=== PATIENT | female | born 1960 | race Two or more races ===

== ENCOUNTER 2023-06-13 10:28 | Inpatient (IN) | payer MEDICARE, MEDICAID ==
[~2023-06-13] VITALS: Ht 160 cm; Wt 89.7 kg
[2023-06-13] MEDS ORDERED: CLINDAMYCIN 600MG IV 50 ML IV ONE (11:30)
[2023-06-13 11:45] LABS: Basophils # (auto) 0.1 10 ^3/uL (0-0.2); Basophils % (auto) 0.7 % (0.0-2.0); Eosinophils # (auto) 0.3 10 ^3/uL (0-0.8); Eosinophils % (auto) 2.5 % (0.0-7.0); Hematocrit 33.7 % (36.0-46.0); Hemoglobin 10.8 g/dL (12.2-16.2); Lymphocytes % (auto) 17.3 % (10.0-50.0); Mean Corpuscular Volume 84.4 fL (80.0-100.0); Monocytes # (auto) 0.7 10 ^3/uL (0-1.3); Monocytes % (auto) 6.3 % (0.0-12.0); Neutrophils # (auto) 8.3 10 ^3/uL (1.6-8.6); Neutrophils % (auto) 73.2 % (37.0-80.0); Red Cell Distribution Width 16.9 % (11.8-14.3); White Blood Cell 11.4 10^3/uL (4.4-10.8)
[2023-06-13 12:35] LABS: Lactic Acid w/Reflex 2.4 mmol/L (0.4-2.0)
[2023-06-13 12:41] LABS: Potassium 4.6 mmol/L (3.5-5.1)
[2023-06-13 12:53] LABS: Albumin 3.2 g/dL (3.4-5.0); BUN/Creatinine Ratio 16.8 (10.0-20.0); Total Protein 8.2 g/dL (6.4-8.2)
[2023-06-13 13:00] LABS: Bilirubin, Total 0.4 mg/dL (0.2-1.0)
[2023-06-13 13:19] LABS: Erythrocyte Sedimentation Rate 85 mm/hr (0-20)
[2023-06-13] MEDS ORDERED: VANCOMYCIN 1GM/250ML 250 ML IV ONE ×2 (13:30→19:00)
[2023-06-13] MEDS ORDERED: MORPHINE SULFATE INJ 2 MG/ml SYRG IV PRN (13:45)
[2023-06-13] MEDS ORDERED: NITROGLYCERIN 0.4 MG SL TAB SL PRN (13:45)
[2023-06-13 14:55] LABS: Eosinophils # (auto) 0.3 10 ^3/uL (0-0.8); Hemoglobin 10.6 g/dL (12.2-16.2); Lymphocytes # (auto) 1.9 10 ^3/uL (0.4-5.4); Monocytes # (auto) 0.6 10 ^3/uL (0-1.3); Neutrophils # (auto) 8.7 10 ^3/uL (1.6-8.6)
[2023-06-13 14:57] LABS: Basophils # (auto) 0.1 10 ^3/uL (0-0.2); Basophils % (auto) 0.7 % (0.0-2.0); Eosinophils % (auto) 2.8 % (0.0-7.0); Hematocrit 32.8 % (36.0-46.0); Lymphocytes % (auto) 16.2 % (10.0-50.0); Mean Corpuscular Hemoglobin 26.9 pg (28.0-32.0); Mean Corpuscular Hgb Conc. 32.3 g/dL (32.0-36.0); Mean Corpuscular Volume 83.2 fL (80.0-100.0); Monocytes % (auto) 5.4 % (0.0-12.0); Neutrophils % (auto) 74.9 % (37.0-80.0); Red Blood Cells 3.94 10^6/uL (4.0-5.20); Red Cell Distribution Width 16.5 % (11.8-14.3); White Blood Cell 11.6 10^3/uL (4.4-10.8)
[2023-06-13 15:48] LABS: Urine Bacteria NONE SEEN /hpf (None Seen); Urine Blood Negative /uL (Negative); Urine Clarity Clear (Clear); Urine Color Yellow (Yellow); Urine Hyaline Cast MANY /lpf (0 - 2); Urine Mucus FEW (None Seen); Urine Protein, UAD 2+ (Negative); Urine Specific Gravity 1.032 (1.001-1.035); Urine WBC 2 /hpf (0 - 5); Urine pH 5.5 (5.0-8.0)
[2023-06-13] MEDS ORDERED: VANCOMYCIN PER PHARMACY 0 MG IV SCH (16:45)
[2023-06-13 16:56] LABS: Alcohol, Urine < 3.0 mg/dL (0-10); Amphetamine Screen, Urine NEGATIVE (NEGATIVE); Barbiturate Scree,Urine NEGATIVE (NEGATIVE); Benzodiazephine Screen, Urine NEGATIVE (NEGATIVE); Cannabinoid Screen, Urine NEGATIVE (NEGATIVE); Cocaine Screen, Urine NEGATIVE (NEGATIVE); Opiate Scree,Urine POSITIVE (NEGATIVE); Phencyclidine Screen, Urine NEGATIVE (NEGATIVE)
[2023-06-13] MEDS ORDERED: ONDANSETRON HCL 4 MG/2 ML VIAL IV ONE (20:15)
[2023-06-13] MEDS ORDERED: MORPHINE SULFATE INJ 2 MG/ml SYRG IV ONE (20:15)
[2023-06-13 20:46] VITALS: PULSE 92
[2023-06-13 22:00] VITALS: BP 121/66; PULSE 95; RESP 16; TEMP 98.3; O2SAT 96
[2023-06-13] MEDS: HYDROcodone-ACET 5/325MG TAB PO PRN (22:05)
[2023-06-13] MEDS ORDERED: CHOL20007 PO (22:32)
[2023-06-13] MEDS ORDERED: SITA50TA PO (22:32)
[2023-06-13] MEDS ORDERED: LEVEMIR SC (22:32)
[2023-06-13] MEDS ORDERED: GABA-339 PO (22:32)
[2023-06-13] MEDS ORDERED: METF-372 PO (22:32)
[2023-06-13] MEDS ORDERED: ASPI-123 PO (22:32)
[2023-06-13] MEDS ORDERED: CARV3.1240 PO (22:32)
[2023-06-13] MEDS ORDERED: LISI-275 PO (22:32)
[2023-06-14] MEDS: CEFEPIME 1GM/ 50ML 50 ML IV SCH ×4 (00:44→22:12)
[2023-06-14 05:00] VITALS: BP 169/80; PULSE 77; RESP 20; TEMP 98; O2SAT 96
[2023-06-14 06:48] LABS: INR 1.01 (0.9-1.15); Partial Thromboplastin Time 35.1 SEC (24.5-34.5); Prothrombin Time 10.6 sec (9.3-11.8)
[2023-06-14 06:55] LABS: Basophils # (auto) 0.1 10 ^3/uL (0-0.2); Basophils % (auto) 0.6 % (0.0-2.0); Eosinophils # (auto) 0.4 10 ^3/uL (0-0.8); Eosinophils % (auto) 4.5 % (0.0-7.0); Hematocrit 31.4 % (36.0-46.0); Hemoglobin 10.3 g/dL (12.2-16.2); Lymphocytes # (auto) 1.8 10 ^3/uL (0.4-5.4); Lymphocytes % (auto) 18.4 % (10.0-50.0); Mean Corpuscular Hemoglobin 27.3 pg (28.0-32.0); Mean Corpuscular Hgb Conc. 32.8 g/dL (32.0-36.0); Mean Corpuscular Volume 83.2 fL (80.0-100.0); Monocytes # (auto) 0.7 10 ^3/uL (0-1.3); Monocytes % (auto) 7.5 % (0.0-12.0); Neutrophils # (auto) 6.6 10 ^3/uL (1.6-8.6); Nucleated Red Blood Cells % 0.1 %; Red Blood Cells 3.78 10^6/uL (4.0-5.20); Red Cell Distribution Width 16.5 % (11.8-14.3); White Blood Cell 9.5 10^3/uL (4.4-10.8)
[2023-06-14 07:06] LABS: Potassium 4.6 mmol/L (3.5-5.1)
[2023-06-14 07:22] LABS: BUN/Creatinine Ratio 18.1 (10.0-20.0); Calcium 8.6 mg/dL (8.5-10.1)
[2023-06-14] MEDS ORDERED: SODIUM CHLORIDE 0.9% 1,000 ML IV SCH (08:15)
[2023-06-14 09:00] VITALS: BP 124/53; PULSE 85; RESP 20; TEMP 98.4; O2SAT 97
[2023-06-14] MEDS ORDERED: PATIENTS OWN MEDICATION (Cholecalciferol (Vitamin D3) 1 TAB) PO SCH (10:00)
[2023-06-14] MEDS ORDERED: ASPirin-EC 325mg tab PO SCH (10:00)
[2023-06-14] MEDS ORDERED: DEXTROSE (50%) 50ML SYRG IV PRN (12:15)
[2023-06-14] MEDS ORDERED: ATORVASTATIN 20 MG TAB PO ONE (13:00)
[2023-06-14 13:02] VITALS: BP 143/54; PULSE 81; RESP 20; TEMP 97.7; O2SAT 97
[2023-06-14] MEDS ORDERED: GABAPENTIN 500 MG PO SCH (14:00)
[2023-06-14] MEDS: CARVEDILOL 3.125 MG TAB PO SCH ×2 (14:29→22:12)
[2023-06-14] MEDS: GABAPENTIN 300 MG CAP PO SCH ×2 (14:30→22:12)
[2023-06-14] MEDS: LISINOPRIL 5 MG TAB PO SCH (14:30)
[2023-06-14] MEDS: CHOLECALCIFEROL (VITD3) 2,000 UNIT CAP/TAB PO SCH (14:30)
[2023-06-14 17:00] VITALS: BP 154/74; PULSE 86; RESP 20; TEMP 98.6; O2SAT 97
[2023-06-14] MEDS: ACCU-CHEK COMFORT CURVE STRIP VI SCH ×2 (17:00→22:13)
[2023-06-14] MEDS: SODIUM CHLORIDE 0.9% 1,000 ML IV SCH ×2 (18:00→19:00)
[2023-06-14] MEDS ORDERED: VANCOMYCIN 1GM/250ML 250 ML IV SCH (18:00)
[2023-06-14] MEDS: InsuLIN REG 1unit/0.01ml Soln (100units/ml) SC SCH ×2 (19:09→22:00)
[2023-06-14] MEDS: HYDROcodone-ACET 5/325MG TAB PO PRN (20:11)
[2023-06-14] MEDS: VANCOMYCIN 1GM/250ML 250 ML IV SCH (20:11)
[2023-06-14 22:00] VITALS: BP 150/71; PULSE 77; RESP 18; TEMP 98.5; O2SAT 96
[2023-06-15 05:18] VITALS: BP 148/65; PULSE 75; RESP 16; TEMP 98.1; O2SAT 95
[2023-06-15] MEDS: CEFEPIME 1GM/ 50ML 50 ML IV SCH (06:09)
[2023-06-15] MEDS: GABAPENTIN 300 MG CAP PO SCH ×3 (06:09→22:27)
[2023-06-15] MEDS: ACCU-CHEK COMFORT CURVE STRIP VI SCH ×4 (06:10→22:28)
[2023-06-15] MEDS: InsuLIN REG 1unit/0.01ml Soln (100units/ml) SC SCH ×4 (06:10→22:23)
[2023-06-15 07:09] LABS: Basophils # (auto) 0.1 10 ^3/uL (0-0.2); Hematocrit 33.6 % (36.0-46.0); Lymphocytes # (auto) 1.3 10 ^3/uL (0.4-5.4); Mean Corpuscular Hemoglobin 26.7 pg (28.0-32.0); Neutrophils # (auto) 5.6 10 ^3/uL (1.6-8.6); Red Cell Distribution Width 16.4 % (11.8-14.3); White Blood Cell 7.7 10^3/uL (4.4-10.8)
[2023-06-15 07:12] LABS: Eosinophils # (auto) 0.2 10 ^3/uL (0-0.8); Eosinophils % (auto) 3.2 % (0.0-7.0); Hemoglobin 10.8 g/dL (12.2-16.2); Lymphocytes % (auto) 17.1 % (10.0-50.0); Mean Corpuscular Hgb Conc. 32.2 g/dL (32.0-36.0); Mean Corpuscular Volume 82.9 fL (80.0-100.0); Monocytes # (auto) 0.4 10 ^3/uL (0-1.3); Monocytes % (auto) 5.7 % (0.0-12.0); Red Blood Cells 4.05 10^6/uL (4.0-5.20)
[2023-06-15 08:00] VITALS: BP 129/43; PULSE 74; RESP 20; TEMP 97.9; O2SAT 94
[2023-06-15 08:00] LABS: Potassium 4.3 mmol/L (3.5-5.1)
[2023-06-15 08:09] LABS: Albumin 2.7 g/dL (3.4-5.0); Bilirubin, Total 0.4 mg/dL (0.2-1.0); Calcium 8.9 mg/dL (8.5-10.1); Total Protein 7.7 g/dL (6.4-8.2)
[2023-06-15] MEDS: CARVEDILOL 3.125 MG TAB PO SCH ×2 (09:57→22:45)
[2023-06-15] MEDS: ASPirin-EC 81 mg tab PO SCH (09:57)
[2023-06-15] MEDS: LISINOPRIL 5 MG TAB PO SCH (09:58)
[2023-06-15] MEDS: CHOLECALCIFEROL (VITD3) 2,000 UNIT CAP/TAB PO SCH (09:58)
[2023-06-15] MEDS: HYDROcodone-ACET 5/325MG TAB PO PRN ×2 (10:05→14:42)
[2023-06-15] MEDS ORDERED: CEFTRIAXONE SODIUM 2 GM in D5W 5% 100 ML IV ONE (11:45)
[2023-06-15 11:58] LABS: Urine Bacteria NONE SEEN /hpf (None Seen); Urine Blood TRACE /uL (Negative); Urine Clarity HAZY (Clear); Urine Color Yellow (Yellow); Urine Mucus FEW (None Seen); Urine Protein, UAD 2+ (Negative); Urine Urobilinogen Normal (Negative); Urine WBC 6 /hpf (0 - 5); Urine pH 5.5 (5.0-8.0)
[2023-06-15 13:00] VITALS: BP 127/68; PULSE 70; RESP 20; TEMP 98; O2SAT 98
[2023-06-15] MEDS ORDERED: LIDOCAINE 1% (LOCAL ANESTH.) PF 5ml SDV ID ONE (13:30)
[2023-06-15 17:00] VITALS: BP 166/66; PULSE 76; RESP 18; TEMP 97.7; O2SAT 97
[2023-06-15 20:00] VITALS: PULSE 81; RESP 19; O2SAT 92
[2023-06-15 22:00] VITALS: BP 173/87; PULSE 81; RESP 19; TEMP 97.9; O2SAT 92
[2023-06-15] MEDS ORDERED: ATORVASTATIN 20 MG TAB PO SCH (22:00)
[2023-06-15] MEDS: VANCOMYCIN 1GM/250ML 250 ML IV SCH (22:25)
[2023-06-15] MEDS: SODIUM CHLOR 0.9% PF (SALINE LOCK) 10ML VIAL/SYR IV SCH (22:26)
[2023-06-16 05:00] VITALS: BP 160/72; PULSE 72; RESP 18; TEMP 98.8; O2SAT 93
[2023-06-16] MEDS: HYDROcodone-ACET 5/325MG TAB PO PRN (05:17)
[2023-06-16] MEDS: GABAPENTIN 300 MG CAP PO SCH ×2 (05:23→14:28)
[2023-06-16] MEDS: ACCU-CHEK COMFORT CURVE STRIP VI SCH ×3 (05:29→17:17)
[2023-06-16] MEDS: InsuLIN REG 1unit/0.01ml Soln (100units/ml) SC SCH ×3 (05:29→17:17)
[2023-06-16] MEDS ORDERED: hydrALAZINE HCL 20 MG/ML VL IV ONE (06:30)
[2023-06-16 06:37] LABS: Basophils # (auto) 0.1 10 ^3/uL (0-0.2); Basophils % (auto) 0.6 % (0.0-2.0); Eosinophils # (auto) 0.3 10 ^3/uL (0-0.8); Eosinophils % (auto) 3.8 % (0.0-7.0); Hematocrit 31.4 % (36.0-46.0); Hemoglobin 10.3 g/dL (12.2-16.2); Lymphocytes # (auto) 1.4 10 ^3/uL (0.4-5.4); Lymphocytes % (auto) 16.9 % (10.0-50.0); Mean Corpuscular Hemoglobin 27.1 pg (28.0-32.0); Mean Corpuscular Hgb Conc. 32.9 g/dL (32.0-36.0); Mean Corpuscular Volume 82.5 fL (80.0-100.0); Monocytes # (auto) 0.6 10 ^3/uL (0-1.3); Monocytes % (auto) 6.7 % (0.0-12.0); Neutrophils # (auto) 6.1 10 ^3/uL (1.6-8.6); Red Cell Distribution Width 16.1 % (11.8-14.3); White Blood Cell 8.5 10^3/uL (4.4-10.8)
[2023-06-16 06:57] LABS: Potassium 4.3 mmol/L (3.5-5.1)
[2023-06-16 07:09] LABS: Albumin 2.8 g/dL (3.4-5.0); BUN/Creatinine Ratio 21.2 (10.0-20.0); Bilirubin, Total 0.3 mg/dL (0.2-1.0); Calcium 9.3 mg/dL (8.5-10.1); Total Protein 7.5 g/dL (6.4-8.2)
[2023-06-16 08:00] VITALS: PULSE 80; RESP 19; O2SAT 92
[2023-06-16 09:00] VITALS: BP 110/41; PULSE 74; RESP 18; TEMP 97.9; O2SAT 98
[2023-06-16] MEDS: ASPirin-EC 81 mg tab PO SCH (09:07)
[2023-06-16] MEDS: CHOLECALCIFEROL (VITD3) 2,000 UNIT CAP/TAB PO SCH (09:07)
[2023-06-16] MEDS: LISINOPRIL 5 MG TAB PO SCH (09:08)
[2023-06-16] MEDS: CARVEDILOL 3.125 MG TAB PO SCH (09:09)
[2023-06-16] MEDS ORDERED: CEFTRIAXONE SODIUM 2 GM in D5W 5% 100 ML IV SCH (10:00)
[2023-06-16] MEDS: SODIUM CHLOR 0.9% PF (SALINE LOCK) 10ML VIAL/SYR IV SCH (11:24)
[2023-06-16 13:00] VITALS: BP 98/57; PULSE 77; RESP 18; TEMP 97.8; O2SAT 99
[2023-06-16 15:15] VITALS: BP 110/41; PULSE 71; TEMP 36.6
[2023-06-16 16:30] VITALS: BP 161/77; PULSE 95; RESP 21; TEMP 98.3; O2SAT 98
== END 2023-06-16 17:43 | DRG 871 ==
LOC: ER 10:28 → OVERFLOW 13:41 → WEST WING 21:06
PROVIDERS: ADMIT Internal Medicine; ATTEND Internal Medicine
PROC: 02HV33Z Insertion of Infusion Device into Superior Vena Cava, Percutaneous Approach (ICD-10-PCS; principal; 2023-06-15)
PROC: B548ZZA Ultrasonography of Superior Vena Cava, Guidance (ICD-10-PCS; 2023-06-15)
DX: A41.9 Sepsis, unspecified organism (principal); N17.0 Acute kidney failure with tubular necrosis; L03.115 Cellulitis of right lower limb; N39.0 Urinary tract infection, site not specified; I50.42 Chronic combined systolic (congestive) and diastolic (congestive) heart failure; F17.210 Nicotine dependence, cigarettes, uncomplicated; I11.0 Hypertensive heart disease with heart failure; E66.01 Morbid (severe) obesity due to excess calories; E11.42 Type 2 diabetes mellitus with diabetic polyneuropathy; E78.5 Hyperlipidemia, unspecified; E11.51 Type 2 diabetes mellitus with diabetic peripheral angiopathy without gangrene; Z90.49 Acquired absence of other specified parts of digestive tract; Z98.51 Tubal ligation status; Z68.34 Body mass index [BMI] 34.0-34.9, adult; Z82.49 Family history of ischemic heart disease and other diseases of the circulatory system; Z83.3 Family history of diabetes mellitus; Z71.6 Tobacco abuse counseling; Z71.3 Dietary counseling and surveillance
CPT/HCPCS: 36415; 36569; 71045; 73700; 73718; 80048; 80053; 80061; 80202; 80307; 81001; 82306; 82962; 83036; 83605; 85025; 85610; 85652; 85730; 87040; 87077; 87186; 87205; 93306; 93925; 93971; 96365; 96375; G0378; J0696; J1815; J2405; J7060

== ENCOUNTER → 2023-07-20 | Emergency (ER) | payer MEDICARE, MEDICAID ==
[~2023-07-20] VITALS: Ht 160 cm; Wt 86.4 kg
[~2023-07-20] MED LIST: ASPI-123 PO; CARV3.1240 PO; CHOL20007 PO; GABA-339 PO; LEVEMIR SC; LISI-275 PO; METF-372 PO; SITA50TA PO
[2023-07-20 15:43] VITALS: BP 180/88; PULSE 89; RESP 18; O2SAT 95
== END | disposition left against medical advice (07) ==
LOC: ER 15:24
DX: T82.898A Other specified complication of vascular prosthetic devices, implants and grafts, initial encounter (principal); Z53.21 Procedure and treatment not carried out due to patient leaving prior to being seen by health care provider

== ENCOUNTER 2024-03-17 14:21 | Emergency (ER) | payer MEDICARE, MEDICAID ==
[~2024-03-17] VITALS: Ht 160 cm; Wt 93.8 kg
[2024-03-17 14:58] LABS: Urine Bacteria None Seen /hpf (None Seen)
[2024-03-17 15:16] LABS: Urine Blood 3+ /uL (Negative); Urine Clarity Turbid (Clear); Urine Color Brown (Yellow); Urine Mucus FEW (None Seen); Urine Protein, UAD 3+ (Negative); Urine Specific Gravity 1.021 (1.001-1.035); Urine Urobilinogen Normal (Negative); Urine WBC 83 /hpf (0 - 5)
[2024-03-17] MEDS: HYDROcodone-ACET 10/325MG TAB PO ONE (15:51)
[2024-03-17] MEDS: ONDANSETRON ODT 4 MG TAB PO ONE (15:51)
[2024-03-17 16:13] LABS: Basophils # (auto) 0.1 10 ^3/uL (0-0.2); Basophils % (auto) 0.7 % (0.0-2.0); Eosinophils # (auto) 0.2 10 ^3/uL (0-0.8); Eosinophils % (auto) 1.7 % (0.0-7.0); Hematocrit 36.9 % (36.0-46.0); Hemoglobin 12.2 g/dL (12.2-16.2); Lymphocytes # (auto) 2.2 10 ^3/uL (0.4-5.4); Lymphocytes % (auto) 22.5 % (10.0-50.0); Mean Corpuscular Hemoglobin 28.5 pg (28.0-32.0); Mean Corpuscular Volume 86.3 fL (80.0-100.0); Monocytes # (auto) 0.6 10 ^3/uL (0-1.3); Monocytes % (auto) 6.2 % (0.0-12.0); Neutrophils # (auto) 6.6 10 ^3/uL (1.6-8.6); Neutrophils % (auto) 68.9 % (37.0-80.0); Red Blood Cells 4.28 10^6/uL (4.0-5.20); Red Cell Distribution Width 15.5 % (11.8-14.3); White Blood Cell 9.6 10^3/uL (4.4-10.8)
[2024-03-17 16:28] LABS: Alanine Aminotransferase 16 U/L (7-40); Albumin 3.8 g/dL (3.2-4.8); Alkaline Phosphatase 62 U/L (46-116); Anion Gap 5 (5-15); Aspartate Aminotransferase 29 U/L (13-40); BUN/Creatinine Ratio 12.1 (10.0-20.0); Blood Urea Nitrogen 15 mg/dL (9-23); Calcium 9.3 mg/dL (8.7-10.4); Carbon Dioxide 23 mmol/L (20-30); Chloride 104 mmol/L (98-107); Glucose 135 mg/dL (74-106); Lipase 30 U/L (12-53); Potassium 4.7 mmol/L (3.5-5.1); Sodium 132 mmol/L (136-145)
[2024-03-17 16:29] LABS: Bilirubin, Total 0.3 mg/dL (0.2-1.0); Total Protein 6.6 g/dL (5.7-8.2)
[2024-03-17] MEDS: IOHEXOL 300 MG/ML 100ML BOTTLE IJ ONE (16:48)
[2024-03-17] MEDS ORDERED: BACDST PO (18:15)
[2024-03-17] MEDS ORDERED: HYDR-4902 PO (18:21)
[2024-03-17] MEDS: SULFAMETHOX W/TRIMETH(800/160MG) DS TAB PO ONE (18:30)
[2024-03-17 18:34] VITALS: BP 165/94; PULSE 95; RESP 16; TEMP 97.6; O2SAT 95
== END 2024-03-17 18:40 | disposition home or self-care (01) ==
LOC: ER 14:21
DX: N93.8 Other specified abnormal uterine and vaginal bleeding (principal); I31.9 Disease of pericardium, unspecified; N39.0 Urinary tract infection, site not specified; I10 Essential (primary) hypertension; E78.5 Hyperlipidemia, unspecified; K80.20 Calculus of gallbladder without cholecystitis without obstruction; F17.210 Nicotine dependence, cigarettes, uncomplicated; E66.01 Morbid (severe) obesity due to excess calories; Z68.36 Body mass index [BMI] 36.0-36.9, adult; Z98.890 Other specified postprocedural states; Z79.899 Other long term (current) drug therapy
CPT/HCPCS: 36415; 74177; 80053; 81001; 83690; 85025; 93005; 99285; Q0162; Q9967

== ENCOUNTER 2024-03-20 10:54 | Inpatient (IN) | payer MEDICARE, OTHER ==
[~2024-03-20] VITALS: Ht 175.3 cm; Wt 92.1 kg
[~2024-03-20 10:54] MED LIST changes: +BACDST PO; +HYDR-4902 PO
[2024-03-20 11:29] LABS: Urine Bacteria None Seen /hpf (None Seen)
[2024-03-20 11:47] LABS: Urine Blood 3+ /uL (Negative); Urine Clarity Turbid (Clear); Urine Color Brown (Yellow); Urine Mucus FEW (None Seen); Urine Protein, UAD 3+ (Negative); Urine Specific Gravity 1.022 (1.001-1.035); Urine Urobilinogen Normal (Negative); Urine WBC 27 /hpf (0 - 5); Urine pH 6.5 (5.0-9.0)
[2024-03-20 12:36] VITALS: PULSE 90; RESP 18; O2SAT 99
[2024-03-20 12:57] LABS: Basophils # (auto) 0.1 10 ^3/uL (0-0.2); Basophils % (auto) 0.5 % (0.0-2.0); Eosinophils # (auto) 0.2 10 ^3/uL (0-0.8); Eosinophils % (auto) 1.8 % (0.0-7.0); Hematocrit 38.7 % (36.0-46.0); Hemoglobin 12.6 g/dL (12.2-16.2); Lymphocytes # (auto) 1.7 10 ^3/uL (0.4-5.4); Lymphocytes % (auto) 16.5 % (10.0-50.0); Mean Corpuscular Hemoglobin 28.2 pg (28.0-32.0); Mean Corpuscular Hgb Conc. 32.7 g/dL (32.0-36.0); Mean Corpuscular Volume 86.5 fL (80.0-100.0); Monocytes # (auto) 0.5 10 ^3/uL (0-1.3); Monocytes % (auto) 4.8 % (0.0-12.0); Neutrophils # (auto) 7.9 10 ^3/uL (1.6-8.6); Neutrophils % (auto) 76.4 % (37.0-80.0); Red Blood Cells 4.47 10^6/uL (4.0-5.20); Red Cell Distribution Width 15.1 % (11.8-14.3); White Blood Cell 10.3 10^3/uL (4.4-10.8)
[2024-03-20 13:02] LABS: INR 1.08 (0.9-1.15); Partial Thromboplastin Time 33.9 SEC (24.5-34.5); Prothrombin Time 11.4 sec (9.3-11.8)
[2024-03-20 13:05] LABS: Alanine Aminotransferase 23 U/L (7-40); Albumin 4.1 g/dL (3.2-4.8); Alkaline Phosphatase 64 U/L (46-116); Anion Gap 3 (5-15); Aspartate Aminotransferase 42 U/L (13-40); BUN/Creatinine Ratio 11.9 (10.0-20.0); Bilirubin, Total 0.3 mg/dL (0.2-1.0); Blood Urea Nitrogen 16 mg/dL (9-23); Calcium 9.3 mg/dL (8.7-10.4); Carbon Dioxide 23 mmol/L (20-30); Chloride 106 mmol/L (98-107); Glucose 69 mg/dL (74-106); Sodium 132 mmol/L (136-145); Total Protein 7.1 g/dL (5.7-8.2)
[2024-03-20 13:07] LABS: Potassium 5.6 mmol/L (3.5-5.1)
[2024-03-20] MEDS: ALBUTEROL SULF 2.5 MG/0.5ML(0.5%) NEB SOLN NEB ONE (13:30)
[2024-03-20] MEDS: CALCIUM GLUC 1,000mg/50ml-NS 50 ML IV ONE (14:25)
[2024-03-20] MEDS: SODIUM ZIRCONIUM CYCL 10 GM PAK PO ONE (14:25)
[2024-03-20] MEDS: FUROSEMIDE 20 MG/2 ML VIAL IV ONE (14:25)
[2024-03-20 16:48] LABS: Hematocrit 34.9 % (36.0-46.0); Hemoglobin 11.8 g/dL (12.2-16.2)
[2024-03-20 19:25] VITALS: PULSE 86; RESP 19; O2SAT 93
[2024-03-20] MEDS ORDERED: DEXTROSE (50%) 50ML SYRG IV PRN (21:45)
[2024-03-20] MEDS ORDERED: ONDANSETRON HCL 4 MG/2 ML VIAL IV PRN (21:45)
[2024-03-20] MEDS ORDERED: NITROGLYCERIN 0.4 MG SL TAB SL PRN (21:45)
[2024-03-20] MEDS ORDERED: TEMAZEPAM 15 MG CAP PO PRN (21:45)
[2024-03-20] MEDS ORDERED: MORPHINE SULFATE INJ 2 MG/ml SYRG IV PRN (21:45)
[2024-03-20] MEDS: InsuLIN REG 1unit/0.01ml Soln (100units/ml) SC SCH (22:00)
[2024-03-20] MEDS: ACCU-CHEK COMFORT CURVE STRIP VI SCH (22:00)
[2024-03-20] MEDS: CARVEDILOL 3.125 MG TAB PO SCH (23:46)
[2024-03-20] MEDS: ATORVASTATIN 20 MG TAB PO SCH (23:47)
[2024-03-21] VITALS (7 sets, daily range): BP systolic 103–155; BP diastolic 68–77; PULSE 72–80; RESP 14–19; TEMP 97.6–98.9; O2SAT 95–97
[2024-03-21 04:59] LABS: Basophils # (auto) 0.1 10 ^3/uL (0-0.2); Basophils % (auto) 0.9 % (0.0-2.0); Eosinophils # (auto) 0.4 10 ^3/uL (0-0.8); Hematocrit 36.6 % (36.0-46.0); Hemoglobin 12.3 g/dL (12.2-16.2); Lymphocytes # (auto) 2.3 10 ^3/uL (0.4-5.4); Lymphocytes % (auto) 25.6 % (10.0-50.0); Mean Corpuscular Hemoglobin 28.9 pg (28.0-32.0); Mean Corpuscular Hgb Conc. 33.6 g/dL (32.0-36.0); Monocytes # (auto) 0.6 10 ^3/uL (0-1.3); Monocytes % (auto) 6.7 % (0.0-12.0); Neutrophils # (auto) 5.6 10 ^3/uL (1.6-8.6); Neutrophils % (auto) 62.8 % (37.0-80.0); Red Blood Cells 4.25 10^6/uL (4.0-5.20); Red Cell Distribution Width 15.7 % (11.8-14.3)
[2024-03-21 05:16] LABS: Alanine Aminotransferase 19 U/L (7-40); Albumin 3.7 g/dL (3.2-4.8); Alkaline Phosphatase 58 U/L (46-116); Anion Gap 5 (5-15); Aspartate Aminotransferase 35 U/L (13-40); BUN/Creatinine Ratio 10.1 (10.0-20.0); Bilirubin, Total 0.3 mg/dL (0.2-1.0); Blood Urea Nitrogen 14 mg/dL (9-23); Calcium 9.3 mg/dL (8.7-10.4); Carbon Dioxide 22 mmol/L (20-30); Chloride 108 mmol/L (98-107); Glucose 80 mg/dL (74-106); Potassium 4.3 mmol/L (3.5-5.1); Sodium 135 mmol/L (136-145); Total Protein 6.4 g/dL (5.7-8.2)
[2024-03-21] MEDS: ENOXAPARIN SOD 30 MG/0.3 ML SYRINGE SC SCH (10:00)
[2024-03-21] MEDS ORDERED: GABA250S7 PO (12:14)
[2024-03-21] MEDS: LISINOPRIL 5 MG TAB PO SCH (12:16)
[2024-03-21] MEDS: FUROSEMIDE 40 MG TAB PO SCH (12:17)
[2024-03-21] MEDS ORDERED: GADOTERATE MEG 10 MMOL/20ml INJ (0.5MMOL/ml) IV ONE (14:07)
[2024-03-22 05:00] VITALS: BP 150/78; PULSE 52; RESP 18; TEMP 98.6; O2SAT 96
[2024-03-22 07:02] LABS: Anion Gap 4 (5-15); Carbon Dioxide 26 mmol/L (20-30); Chloride 105 mmol/L (98-107); Potassium 4.1 mmol/L (3.5-5.1); Sodium 135 mmol/L (136-145)
[2024-03-22 07:04] LABS: Calcium 9.5 mg/dL (8.5-10.1)
[2024-03-22 07:08] LABS: BUN/Creatinine Ratio 12.9 (10.0-20.0); Blood Urea Nitrogen 16 mg/dL (9-23); Glucose 96 mg/dL (74-106)
[2024-03-22] MEDS: ACETAMINOPHEN 325 MG TAB PO PRN (08:13)
[2024-03-22] MEDS: COLCHICINE 0.6 MG CAP PO SCH (08:14)
[2024-03-22 09:00] VITALS: BP 110/62; PULSE 83; RESP 18; TEMP 97.5; O2SAT 98
[2024-03-22] MEDS ORDERED: FER325T PO (10:18)
[2024-03-22] MEDS ORDERED: CLOP75TA28 PO (10:18)
[2024-03-22 13:00] VITALS: BP 128/68; PULSE 74; RESP 16; TEMP 98.7; O2SAT 96
== END 2024-03-22 13:00 | disposition home or self-care (01) | DRG 760 ==
LOC: ER 10:54 → TELE 21:45 → TELE-CENTR 03-21 09:00
PROVIDERS: ADMIT Nurse Practitioner; ATTEND Internal Medicine
DX: D25.9 Leiomyoma of uterus, unspecified (principal); I13.0 Hypertensive heart and chronic kidney disease with heart failure and stage 1 through stage 4 chronic kidney disease, or unspecified chronic kidney disease; I31.39 Other pericardial effusion (noninflammatory); I50.32 Chronic diastolic (congestive) heart failure; E87.5 Hyperkalemia; J44.9 Chronic obstructive pulmonary disease, unspecified; E11.22 Type 2 diabetes mellitus with diabetic chronic kidney disease; N18.31 Chronic kidney disease, stage 3a; E78.5 Hyperlipidemia, unspecified; I25.10 Atherosclerotic heart disease of native coronary artery without angina pectoris; E11.51 Type 2 diabetes mellitus with diabetic peripheral angiopathy without gangrene; E66.9 Obesity, unspecified; R93.89 Abnormal findings on diagnostic imaging of other specified body structures; Z90.49 Acquired absence of other specified parts of digestive tract; Z98.51 Tubal ligation status; Z83.3 Family history of diabetes mellitus; Z82.49 Family history of ischemic heart disease and other diseases of the circulatory system; Z81.8 Family history of other mental and behavioral disorders; Z79.02 Long term (current) use of antithrombotics/antiplatelets; Z68.30 Body mass index [BMI] 30.0-30.9, adult
CPT/HCPCS: 36415; 71250; 73723; 76830; 76856; 80048; 80053; 81001; 82962; 83036; 83880; 84132; 84443; 84484; 85014; 85018; 85025; 85610; 85730; 86850; 86900; 86901; 93306; 94640; 96365; 96375; G0378; J1815

== ENCOUNTER 2024-06-07 11:29 | Inpatient (IN) | payer MEDICARE, OTHER ==
[~2024-06-07] VITALS: Ht 157.5 cm; Wt 92.9 kg
[~2024-06-07 11:29] MED LIST changes: +CLOP75TA28 PO; +FER325T PO; -GABA-339 PO; +GABA250S7 PO
[2024-06-07] MEDS: MORPHINE SULFATE 4 MG/ML SYR/VIAL IV ONE (12:15)
[2024-06-07] MEDS: SODIUM CHLORIDE 0.9% 1,000 ML IVB ONE (12:15)
[2024-06-07 13:21] LABS: Basophils # (auto) 0 10 ^3/uL (0-0.2); Basophils % (auto) 0.3 % (0.0-2.0); Eosinophils # (auto) 0.5 10 ^3/uL (0-0.8); Eosinophils % (auto) 3.7 % (0.0-7.0); Hematocrit 41.4 % (36.0-46.0); Hemoglobin 13.8 g/dL (12.2-16.2); Lymphocytes % (auto) 13.8 % (10.0-50.0); Mean Corpuscular Hemoglobin 29.5 pg (28.0-32.0); Mean Corpuscular Hgb Conc. 33.4 g/dL (32.0-36.0); Mean Corpuscular Volume 88.5 fL (80.0-100.0); Monocytes # (auto) 1.3 10 ^3/uL (0-1.3); Monocytes % (auto) 9.1 % (0.0-12.0); Neutrophils # (auto) 10.8 10 ^3/uL (1.6-8.6); Neutrophils % (auto) 73.1 % (37.0-80.0); Platelet Count (auto) 262 10^3/uL (140-450); Red Blood Cells 4.68 10^6/uL (4.0-5.20); Red Cell Distribution Width 16.1 % (11.8-14.3); White Blood Cell 14.8 10^3/uL (4.4-10.8)
[2024-06-07 13:33] LABS: Alanine Aminotransferase 46 U/L (7-40); Alkaline Phosphatase 89 U/L (46-116); Anion Gap 7 (5-15); Aspartate Aminotransferase 40 U/L (13-40); BUN/Creatinine Ratio 9.8 (10.0-20.0); Bilirubin, Total 0.6 mg/dL (0.2-1.0); Blood Urea Nitrogen 19 mg/dL (9-23); Calcium 9.5 mg/dL (8.7-10.4); Carbon Dioxide 26 mmol/L (20-30); Chloride 107 mmol/L (98-107); Glucose 114 mg/dL (74-106); Magnesium 2.3 mg/dL (1.6-2.6); Potassium 4.5 mmol/L (3.5-5.1); Sodium 140 mmol/L (136-145); Total Protein 6.5 g/dL (5.7-8.2)
[2024-06-07 13:44] LABS: Partial Thromboplastin Time 24.2 SEC (24.5-34.5); Prothrombin Time 10.6 sec (9.3-11.8)
[2024-06-07 15:03] VITALS: PULSE 80; RESP 18; O2SAT 98
[2024-06-07] MEDS: PANTOPRAZOLE 40 MG/10 ML VIAL INJ IV ONE (17:16)
[2024-06-07] MEDS: PANTOPRAZOLE 80 MG in SODIUM CHL 0.9% 100 ML IV ONE (17:17)
[2024-06-07] MEDS: PANTOPRAZOLE 40mg/50ML NS AE 50 ML IV SCH (17:30)
[2024-06-07] MEDS ORDERED: HYDROcodone-ACET 5/325MG TAB PO PRN (17:30)
[2024-06-07] MEDS ORDERED: MORPHINE SULFATE INJ 2 MG/ml SYRG IV PRN (17:30)
[2024-06-07] MEDS ORDERED: LACTULOSE 20Gm/30ML SOLN PO PRN (17:30)
[2024-06-07] MEDS ORDERED: NITROGLYCERIN 0.4 MG SL TAB SL PRN (17:30)
[2024-06-07] MEDS ORDERED: DOCUSATE SOD 100 MG CAP PO PRN (17:30)
[2024-06-07] MEDS: SODIUM CHLORIDE 0.9% 1,000 ML IV ONE (17:58)
[2024-06-07] MEDS: SODIUM CHLORIDE 0.9% 1,000 ML IV SCH (17:59)
[2024-06-07 18:21] LABS: Triglycerides 273 mg/dL (< 150)
[2024-06-07 18:22] LABS: LDL Cholesterol 71 mg/dL (< 100)
[2024-06-07 18:23] LABS: Cholesterol 154 mg/dL (< 200); HDL Cholesterol 45 mg/dL (40-59)
[2024-06-07] MEDS: MORPHINE SULFATE INJ 2 MG/ml SYRG IV PRN (20:21)
[2024-06-07 20:30] VITALS: PULSE 80; RESP 16; O2SAT 97
[2024-06-07] MEDS: FERROUS SULFATE 325mg EC TAB PO SCH (22:12)
[2024-06-07] MEDS: GABAPENTIN 300 MG CAP PO SCH (22:12)
[2024-06-07] MEDS: hydrALAZINE HCL 20 MG/ML VL IV PRN (22:14)
[2024-06-07] MEDS: CARVEDILOL 3.125 MG TAB PO SCH (22:14)
[2024-06-08] VITALS (8 sets, daily range): BP systolic 96–165; BP diastolic 51–76; PULSE 59–114; RESP 16–22; TEMP 97.4–101.4; O2SAT 93–96
[2024-06-08 06:08] LABS: Basophils # (auto) 0 10 ^3/uL (0-0.2); Basophils % (auto) 0.1 % (0.0-2.0); Eosinophils # (auto) 0.2 10 ^3/uL (0-0.8); Hematocrit 36.2 % (36.0-46.0); Hemoglobin 12.1 g/dL (12.2-16.2); Lymphocytes # (auto) 1.5 10 ^3/uL (0.4-5.4); Lymphocytes % (auto) 8.6 % (10.0-50.0); Mean Corpuscular Hemoglobin 29.3 pg (28.0-32.0); Mean Corpuscular Hgb Conc. 33.4 g/dL (32.0-36.0); Mean Corpuscular Volume 87.6 fL (80.0-100.0); Monocytes # (auto) 1.3 10 ^3/uL (0-1.3); Monocytes % (auto) 7.7 % (0.0-12.0); Neutrophils # (auto) 14.2 10 ^3/uL (1.6-8.6); Neutrophils % (auto) 82.6 % (37.0-80.0); Platelet Count (auto) 218 10^3/uL (140-450); Red Blood Cells 4.14 10^6/uL (4.0-5.20); White Blood Cell 17.2 10^3/uL (4.4-10.8)
[2024-06-08 06:14] LABS: Alanine Aminotransferase 29 U/L (7-40); Albumin 3.3 g/dL (3.2-4.8); Alkaline Phosphatase 67 U/L (46-116); Anion Gap 7 (5-15); Aspartate Aminotransferase 26 U/L (13-40); BUN/Creatinine Ratio 12.9 (10.0-20.0); Bilirubin, Total 0.8 mg/dL (0.2-1.0); Blood Urea Nitrogen 20 mg/dL (9-23); Calcium 8.2 mg/dL (8.7-10.4); Carbon Dioxide 23 mmol/L (20-30); Chloride 111 mmol/L (98-107); Glucose 111 mg/dL (74-106); Potassium 4.6 mmol/L (3.5-5.1); Sodium 141 mmol/L (136-145); Total Protein 5.6 g/dL (5.7-8.2)
[2024-06-08] MEDS: CHOLECALCIFEROL (VITD3) 1,000UNIT=25mCg TAB PO SCH (11:17)
[2024-06-08] MEDS: GASTROGRAFIN 30 ML SOL ONE (11:30)
[2024-06-08] MEDS: cefTRIAXone 1GM/50ML D5W 50 ML IV ONE (12:21)
[2024-06-08] MEDS: PANTOPRAZOLE 40 MG/10 ML VIAL INJ IV ONE (12:22)
[2024-06-08] MEDS: MORPHINE SULFATE INJ 2 MG/ml SYRG IV PRN (13:30)
[2024-06-08 14:24] LABS: Lactic Acid w/Reflex 2.2 mmol/L (0.4-2.0)
[2024-06-08] MEDS: metroNIDAZOLE 500MG/100ML 100 ML IV ONE (18:31)
[2024-06-08] MEDS: ACETAMINOPHEN 325 MG TAB PO PRN (20:12)
[2024-06-08] MEDS: PANTOPRAZOLE 40 MG/10 ML VIAL INJ IV SCH (22:10)
[2024-06-08] MEDS: metroNIDAZOLE 500MG/100ML 100 ML IV SCH (22:14)
[2024-06-08 22:35] LABS: Hematocrit 35.4 % (36.0-46.0); Hemoglobin 11.6 g/dL (12.2-16.2)
[2024-06-09] VITALS (7 sets, daily range): BP systolic 96–140; BP diastolic 55–63; PULSE 88–108; RESP 18–20; TEMP 97.5–99; O2SAT 93–97
[2024-06-09] MEDS: cefTRIAXone 1GM/50ML D5W 50 ML IV SCH (09:25)
[2024-06-09 10:19] LABS: Hemoglobin 10.8 g/dL (12.2-16.2)
[2024-06-09 10:47] LABS: Basophils # (auto) 0 10 ^3/uL (0-0.2); Basophils % (auto) 0.2 % (0.0-2.0); Eosinophils # (auto) 0.1 10 ^3/uL (0-0.8); Eosinophils % (auto) 0.6 % (0.0-7.0); Hematocrit 32.5 % (36.0-46.0); Hemoglobin 10.8 g/dL (12.2-16.2); Lymphocytes # (auto) 1.6 10 ^3/uL (0.4-5.4); Lymphocytes % (auto) 7.9 % (10.0-50.0); Mean Corpuscular Hemoglobin 29.2 pg (28.0-32.0); Mean Corpuscular Hgb Conc. 33.2 g/dL (32.0-36.0); Monocytes % (auto) 4.8 % (0.0-12.0); Neutrophils # (auto) 17.1 10 ^3/uL (1.6-8.6); Neutrophils % (auto) 86.5 % (37.0-80.0); Nucleated Red Blood Cells % 0.1 %; Platelet Count (auto) 186 10^3/uL (140-450); Red Cell Distribution Width 16.2 % (11.8-14.3); White Blood Cell 19.8 10^3/uL (4.4-10.8)
[2024-06-09 14:00] LABS: COVID19 ANTIGEN SOFIA FIA NEGATIVE (NEGATIVE); Rapid Influenza A Negative (Negative); Rapid Influenza B Negative (Negative)
== END 2024-06-09 15:00 | disposition home or self-care (01) | DRG 872 ==
LOC: EDBD 11:29 → ER 11:29 → OVERFLOW 17:33 → WEST WING 06-08 08:20 → TELE-WESTW 06-08 17:04
PROVIDERS: ADMIT Nurse Practitioner Family; ATTEND Family Medicine
DX: A41.9 Sepsis, unspecified organism (principal); A09 Infectious gastroenteritis and colitis, unspecified; K92.2 Gastrointestinal hemorrhage, unspecified; N17.9 Acute kidney failure, unspecified; D62 Acute posthemorrhagic anemia; F17.210 Nicotine dependence, cigarettes, uncomplicated; K59.00 Constipation, unspecified; E78.5 Hyperlipidemia, unspecified; E66.01 Morbid (severe) obesity due to excess calories; N18.30 Chronic kidney disease, stage 3 unspecified; I12.9 Hypertensive chronic kidney disease with stage 1 through stage 4 chronic kidney disease, or unspecified chronic kidney disease; E11.22 Type 2 diabetes mellitus with diabetic chronic kidney disease; E11.51 Type 2 diabetes mellitus with diabetic peripheral angiopathy without gangrene; J44.9 Chronic obstructive pulmonary disease, unspecified; Z90.49 Acquired absence of other specified parts of digestive tract; Z79.82 Long term (current) use of aspirin; Z83.3 Family history of diabetes mellitus; Z82.49 Family history of ischemic heart disease and other diseases of the circulatory system; Z90.710 Acquired absence of both cervix and uterus; Z95.820 Peripheral vascular angioplasty status with implants and grafts; Z68.37 Body mass index [BMI] 37.0-37.9, adult; Z79.4 Long term (current) use of insulin
CPT/HCPCS: 36415; 74018; 74176; 80053; 80061; 83605; 83690; 83735; 83930; 83986; 84443; 84484; 85014; 85018; 85025; 85610; 85730; 86850; 86900; 86901; 87040; 87045; 87081; 87426; 87427; 87493; 87804; G0378; J2470; J3490